=== PATIENT | female | born 1945 | race Caucasian/White ===

== ENCOUNTER 2019-07-12 11:57 | Day surgery (SDC) | payer MEDICARE, OTHER ==
[2019-07-11 13:52] VITALS: BMI 26.3
[~2019-07-12 11:57] MED LIST: LACTATED RINGERS 1,000 ML IV SCH; LIDOCAINE 1% 20 ML VIAL (10MG/ML) FOR IV START INTRADERMA PRN
[2019-07-12 12:13] VITALS: RESP 16; TEMP 97.2
[2019-07-12] MEDS ORDERED: LIDOCAINE 1% INJ 10MG/ML (20 ML MDV) ONE (12:32)
[2019-07-12] MEDS ORDERED: PROPOFOL 10 MG/ML 20 ML VIAL IV ONE (12:32)
--- NOTE | 2019-07-12 13:23 | P.PCN ---
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 She had CABG done in April 2019 at [facility] at which time she was noted to have pleural effusion. 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 The patient has remote history of esophageal cancer diagnosed in 2005 for which she underwent distal esophagectomy with gastric pull-through surgery and she remained in her vision since then. She is scheduled for an upper endoscopy as well as colonoscopy to [place] further. Procedure performed: Esophagogastroduodenoscopy with biopsy Colonoscopy Preoperative diagnosis: [place] [facility] [place] After informed consent was obtained from the patient was brought into the endoscopy unit and IV sedation was administered by anesthesia under continuous monitoring. Initially upper endoscopy was done. The Olympus GF 160 video endoscope was inserted inserted into the mouth and esophagus intubated without any difficulty. The esophagogastric anastomosis was located at 25 cm from the incisors and appeared widely patent and normal. The scope at this time was gradually advanced into the stomach and duodenum and carefully examined. The bulb and second part of the duodenum appeared normal. The scope was then withdrawn into the stomach adequately insufflated with air and upon careful examination the antrum and body, ppeared normal. there was evidence of gastric pull-through surgery noted. The scope was then withdrawn into the esophagus. The GE anastomosis was located at 25 cm from the incisors.t appeared regular with no erythema erosions or ulcerations. Rest of the esophagus appeared normal. Patient tolerated the procedure well. At this time the patient continued to remain sedation. Initial digital rectal examination was normal. Olympus CF 160 video colonoscope was then inserted into the rectum and gradually advanced to the cecum revealed scattered small diverticula cyst but no evidence of colorectal neoplasia with moderate to severe difficulty. Careful examination was performed as the scope was gradually being withdrawn. The prep was excellent. The cecum, ascending colon, transverse colon, descending colon, sigmoid colon and rectum appeared normal. scattered s imilar diverticulosis seen. Retroflexion was performed in the rectum and no lesions were noted. Patient tolerated the procedure well. Impression: 1 Upper endoscopy revealed normal esophagogastric anastomosis at 25 cm from the incisors with no evidence of recurrent neoplasm. Mild antral gastritis seen] 2 Colonoscopy revealed scattered sigmoidal diverticula cyst but no evidence of colorectal neoplasia Recommendations: Findings of this examination were discussed with the patient as well as her family. She was advised to follow with her oncologist at [facility] next week.
[2019-07-12 13:45] VITALS: BP 134/71; PULSE 87
== END 2019-07-12 14:29 | disposition home or self-care (01) ==
LOC: ORWHC2ENDO 11:57
PROVIDERS: ATTEND Internal Medicine Gastroenterology
DX: K31.9 Disease of stomach and duodenum, unspecified (principal); K29.70 Gastritis, unspecified, without bleeding; K57.30 Diverticulosis of large intestine without perforation or abscess without bleeding; F41.9 Anxiety disorder, unspecified; F32.9 Major depressive disorder, single episode, unspecified; J91.0 Malignant pleural effusion; M19.90 Unspecified osteoarthritis, unspecified site; Z85.01 Personal history of malignant neoplasm of esophagus; Z95.1 Presence of aortocoronary bypass graft; Z87.891 Personal history of nicotine dependence; Z79.02 Long term (current) use of antithrombotics/antiplatelets; Z79.899 Other long term (current) drug therapy; Z90.710 Acquired absence of both cervix and uterus; Z90.49 Acquired absence of other specified parts of digestive tract
CPT/HCPCS: 88305; 45378; 43239; J2001; J2704